=== PATIENT | female | born 1980 | race Caucasian/White ===

== ENCOUNTER 2021-05-27 13:46 | Inpatient (IN) | payer OTHER ==
[~2021-05-27] VITALS: Ht 154.9 cm; Wt 138.1 kg
[2021-05-27 14:48] LABS: BASOPHILS % 0.1 % (0.0-1.0); HEMOGLOBIN 13.4 g/dL (12.0-16.0); LYMPHOCYTES # (AUTO) 0.9 (1.0-3.2); LYMPHOCYTES % 11.2 % (18.0-39.1); MEAN CORPUSCULAR HEMOGLOBIN 29.3 pg (28-32); MEAN CORPUSCULAR HGB CONC 32.7 g/dL (31-35); MEAN CORPUSCULAR VOLUME 89.7 fL (81-99); MONOCYTES # (AUTO) 0.3 (0.2-0.8); NEUTROPHILS # (AUTO) 6.6 (2.1-6.9); NEUTROPHILS % 83.2 % (38.7-80.0); PLATELET COUNT 164 x10e3/uL (140-360); RED BLOOD COUNT 4.57 x10e6/uL (3.6-5.1)
[2021-05-27 14:59] LABS: INR 0.95; PROTHROMBIN TIME 13.3 seconds (11.9-14.5)
[2021-05-27 15:00] LABS: PARTIAL THROMBOPLASTIN TIME 28.5 seconds (23.8-35.5)
[2021-05-27 15:06] LABS: ALBUMIN 2.7 g/dL (3.5-5.0); ALBUMIN/GLOBULIN RATIO 0.5 (0.8-2.0); ANION GAP 18.9 mmol/L (8-16); CREATININE, SERUM 0.89 mg/dL (0.57-1.11); POTASSIUM 3.9 mmol/L (3.5-5.1)
[2021-05-27 15:12] LABS: CREATINE KINASE MB 0.8 ng/mL (0-5.0)
[2021-05-27] MEDS ORDERED: SODIUM CHLORIDE 0.9% 1000ML 1,000 ML IV STA (15:27)
[2021-05-27] MEDS ORDERED: ACETAMINOPHEN 325 MG TAB PO ONE (15:30)
[2021-05-27] MEDS ORDERED: CEFTRIAXONE 1 GM in SODIUM CHLORIDE 0.9% 50ML 50 ML IV ONE (16:00)
[2021-05-27] MEDS: DEXAMETHASONE SOD PHOS 10 MG/1 ML VIAL IV SCH (16:11)
[2021-05-27] MEDS ORDERED: LACTATED RINGER'S 500 ML INJ ONE (16:15)
[2021-05-27] MEDS ORDERED: JUNEL1 EAC1 PO (16:43)
[2021-05-27] MEDS ORDERED: REMDESIVIR 200MG 200 MG in SODIUM CHLORIDE 0.9% 100 ML 100 ML IV ONE (17:00)
[2021-05-27] MEDS ORDERED: ENOXAPARIN SOD INJ 40 MG/0.4 ML SYR SC SCH (21:00)
[2021-05-28] VITALS (18 sets, daily range): BP systolic 91–128; BP diastolic 61–96
[2021-05-28 02:16] LABS: CLARITY,URINE SL CLOUDY (CLEAR); COLOR,URINE AMBER (YELLOW); KETONES,URINE 2+ (NEGATIVE); LEUKOCYTE ESTERASE ,URINE NEGATIVE (NEGATIVE); NITRITE,URINE NEGATIVE (NEGATIVE); PROTEIN,URINE DIPSTICK 2+ (NEGATIVE); URINE UROBILINOGEN 0.2 mg/dL (0.2 - 1)
[2021-05-28 02:19] LABS: BACTERIA,URINE FEW /HPF; EPITHELIAL CELLS,URINE FEW /LPF; WBC,URINE (MAN) 0-5 /HPF (0-5)
[2021-05-28 02:20] LABS: AMORPHOUS SEDIMENT,URINE FEW (FEW)
[2021-05-28] MEDS: ACETAMINOPHEN 325 MG TAB PO PRN (03:15)
[2021-05-28 05:54] LABS: HEMATOCRIT 36.6 % (34.2-44.1); HEMOGLOBIN 11.8 g/dL (12.0-16.0); LYMPHOCYTES # (AUTO) 0.7 (1.0-3.2); LYMPHOCYTES % 9.2 % (18.0-39.1); MEAN CORPUSCULAR HEMOGLOBIN 29.4 pg (28-32); MEAN CORPUSCULAR HGB CONC 32.2 g/dL (31-35); MEAN CORPUSCULAR VOLUME 91.3 fL (81-99); MONOCYTES # (AUTO) 0.3 (0.2-0.8); MONOCYTES % 3.5 % (4.4-11.3); NEUTROPHILS # (AUTO) 6.8 (2.1-6.9); PLATELET COUNT 160 x10e3/uL (140-360); RED BLOOD COUNT 4.01 x10e6/uL (3.6-5.1); RED CELL DISTRIBUTION WIDTH 13.9 % (11.7-14.4)
[2021-05-28 06:29] LABS: ALBUMIN 2.2 g/dL (3.5-5.0); ALBUMIN/GLOBULIN RATIO 0.5 (0.8-2.0); ANION GAP 17.9 mmol/L (8-16); CALCIUM 8.5 mg/dL (8.4-10.2); CREATININE, SERUM 0.82 mg/dL (0.57-1.11); MAGNESIUM 2.3 MG/DL (1.3-2.1); PHOSPHORUS 2.1 MG/DL (2.3-4.7); POTASSIUM 3.9 mmol/L (3.5-5.1)
[2021-05-28] MEDS ORDERED: DEXTROSE 50% SYRINGE 50 ML IV PRN (07:00)
[2021-05-28 08:13] LABS: ABG PCO2 42 mmHg (35-45); ABG PH 7.42 (7.35-7.45); ABG PO2 47 mmHg (80-105)
[2021-05-28 08:14] LABS: ABG HCO3 27 mmol/L (22-26); ABG TCO2 28
[2021-05-28] MEDS: DEXAMETHASONE SOD PHOS 10 MG/1 ML VIAL IV SCH (08:14)
[2021-05-28] MEDS: FAMOTIDINE 20 MG/2 ML VIAL IV SCH (08:14)
[2021-05-28] MEDS: ENOXAPARIN SODIUM INJ 100 MG/ML SYR SC SCH ×2 (08:14→21:04)
[2021-05-28] MEDS: CEFTRIAXONE 1 GM in SODIUM CHLORIDE 0.9% 50ML 50 ML IV SCH (08:14)
[2021-05-28] MEDS: INSULIN LISPRO 100 UNIT/1 ML 3ML VIAL SQ SCH ×4 (08:17→21:10)
[2021-05-28] MEDS: ZINC SULFATE 220 MG CAP PO SCH (09:00)
[2021-05-28] MEDS: CHOLECALCIFEROL 400 UNIT TAB PO SCH (09:00)
[2021-05-28] MEDS: ASCORBIC ACID 500 MG TAB PO SCH ×2 (09:00→17:00)
[2021-05-28] MEDS ORDERED: FUROSEMIDE INJ 10 MG/ML 2 ML VIAL IV ONE ×2 (09:00→10:00)
[2021-05-28] MEDS ORDERED: FUROSEMIDE INJ 10 MG/ML 2 ML VIAL ONE (09:38)
[2021-05-28] MEDS: REMDESIVIR 100MG 100 MG in SODIUM CHLORIDE 0.9% 100 ML 100 ML IV SCH (13:04)
[2021-05-28] MEDS: DEXMEDETOMIDINE 200MCG/NS 50ML 50 ML IV SCH (18:29)
[2021-05-29] VITALS (25 sets, daily range): BP systolic 82–140; BP diastolic 51–98
[2021-05-29] MEDS: DEXMEDETOMIDINE 200MCG/NS 50ML 50 ML IV SCH ×3 (00:19→20:32)
[2021-05-29 04:50] LABS: BASOPHILS % 0.1 % (0.0-1.0); HEMATOCRIT 39.3 % (34.2-44.1); HEMOGLOBIN 12.4 g/dL (12.0-16.0); LYMPHOCYTES # (AUTO) 0.9 (1.0-3.2); LYMPHOCYTES % 8.9 % (18.0-39.1); MEAN CORPUSCULAR HEMOGLOBIN 29.1 pg (28-32); MEAN CORPUSCULAR HGB CONC 31.6 g/dL (31-35); MEAN CORPUSCULAR VOLUME 92.3 fL (81-99); MONOCYTES # (AUTO) 0.5 (0.2-0.8); MONOCYTES % 4.7 % (4.4-11.3); NEUTROPHILS # (AUTO) 8.4 (2.1-6.9); NEUTROPHILS % 84.6 % (38.7-80.0); PLATELET COUNT 176 x10e3/uL (140-360); RED BLOOD COUNT 4.26 x10e6/uL (3.6-5.1); RED CELL DISTRIBUTION WIDTH 13.8 % (11.7-14.4)
[2021-05-29 04:58] LABS: PROTHROMBIN TIME 13.8 seconds (11.9-14.5)
[2021-05-29 05:08] LABS: ALBUMIN 2.2 g/dL (3.5-5.0); ALBUMIN/GLOBULIN RATIO 0.5 (0.8-2.0); ANION GAP 18.2 mmol/L (8-16); CALCIUM 8.9 mg/dL (8.4-10.2); CREATININE, SERUM 1.04 mg/dL (0.57-1.11); POTASSIUM 4.2 mmol/L (3.5-5.1)
[2021-05-29] MEDS: ALBUMIN 25% 25GM 100ML 0.25 GM/ML BTL IV SCH ×3 (08:30→23:42)
[2021-05-29] MEDS: DEXAMETHASONE SOD PHOS 10 MG/1 ML VIAL IV SCH (08:30)
[2021-05-29] MEDS: ENOXAPARIN SODIUM INJ 100 MG/ML SYR SC SCH ×2 (08:30→20:32)
[2021-05-29] MEDS: CHOLECALCIFEROL 400 UNIT TAB PO SCH (08:32)
[2021-05-29] MEDS: ASCORBIC ACID 500 MG TAB PO SCH ×2 (08:32→17:29)
[2021-05-29] MEDS: CEFTRIAXONE 1 GM in SODIUM CHLORIDE 0.9% 50ML 50 ML IV SCH (08:32)
[2021-05-29] MEDS: ZINC SULFATE 220 MG CAP PO SCH (08:32)
[2021-05-29] MEDS: FAMOTIDINE 20 MG/2 ML VIAL IV SCH (08:32)
[2021-05-29] MEDS: INSULIN LISPRO 100 UNIT/1 ML 3ML VIAL SQ SCH ×4 (09:11→22:00)
[2021-05-29] MEDS ORDERED: TOCILIZUMAB 400 MG in SODIUM CHLORIDE 0.9% 80 ML IV ONE (10:00)
[2021-05-29] MEDS: REMDESIVIR 100MG 100 MG in SODIUM CHLORIDE 0.9% 100 ML 100 ML IV SCH (14:12)
[2021-05-29] MEDS ORDERED: DIPHENOXYLATE/ATROPINE TAB PO PRN (19:00)
[2021-05-29] MEDS: ACETAMINOPHEN 325 MG TAB PO PRN (20:33)
[2021-05-30] VITALS (25 sets, daily range): BP systolic 117–181; BP diastolic 71–99
[2021-05-30 06:12] LABS: BASOPHILS % 0.1 % (0.0-1.0); HEMATOCRIT 35.9 % (34.2-44.1); HEMOGLOBIN 11.1 g/dL (12.0-16.0); LYMPHOCYTES # (AUTO) 0.9 (1.0-3.2); MEAN CORPUSCULAR HEMOGLOBIN 29.1 pg (28-32); MEAN CORPUSCULAR HGB CONC 30.9 g/dL (31-35); MEAN CORPUSCULAR VOLUME 94.2 fL (81-99); MONOCYTES # (AUTO) 0.4 (0.2-0.8); MONOCYTES % 4.6 % (4.4-11.3); NEUTROPHILS # (AUTO) 6.7 (2.1-6.9); NEUTROPHILS % 82.3 % (38.7-80.0); PLATELET COUNT 152 x10e3/uL (140-360); RED BLOOD COUNT 3.81 x10e6/uL (3.6-5.1); RED CELL DISTRIBUTION WIDTH 13.7 % (11.7-14.4)
[2021-05-30 07:18] LABS: ALBUMIN 3.1 g/dL (3.5-5.0); ALBUMIN/GLOBULIN RATIO 0.9 (0.8-2.0); ANION GAP 17.3 mmol/L (8-16); CALCIUM 8.7 mg/dL (8.4-10.2); CREATININE, SERUM 0.86 mg/dL (0.57-1.11); POTASSIUM 4.3 mmol/L (3.5-5.1)
[2021-05-30] MEDS: CHOLECALCIFEROL 400 UNIT TAB PO SCH (08:23)
[2021-05-30] MEDS: ASCORBIC ACID 500 MG TAB PO SCH ×2 (08:23→17:00)
[2021-05-30] MEDS: ZINC SULFATE 220 MG CAP PO SCH (08:24)
[2021-05-30] MEDS: INSULIN LISPRO 100 UNIT/1 ML 3ML VIAL SQ SCH ×4 (08:27→21:00)
[2021-05-30] MEDS: DEXAMETHASONE SOD PHOS 10 MG/1 ML VIAL IV SCH (08:28)
[2021-05-30] MEDS: FAMOTIDINE 20 MG/2 ML VIAL IV SCH (08:28)
[2021-05-30] MEDS: ENOXAPARIN SODIUM INJ 100 MG/ML SYR SC SCH ×2 (08:28→21:00)
[2021-05-30] MEDS: CEFTRIAXONE 1 GM in SODIUM CHLORIDE 0.9% 50ML 50 ML IV SCH (08:28)
[2021-05-30 08:34] LABS: TOTAL PROTEIN 24HR, URINE 754.9 mg/24hr (50-100); TOTAL PROTEIN, URINE 71.9 mg/dL (1-14)
[2021-05-30] MEDS: REMDESIVIR 100MG 100 MG in SODIUM CHLORIDE 0.9% 100 ML 100 ML IV SCH (14:17)
[2021-05-30] MEDS: DEXMEDETOMIDINE 200MCG/NS 50ML 50 ML IV SCH (23:16)
[2021-05-31] VITALS (25 sets, daily range): BP systolic 142–183; BP diastolic 60–97
[2021-05-31 06:17] LABS: BASOPHILS % 0.2 % (0.0-1.0); HEMATOCRIT 40.5 % (34.2-44.1); HEMOGLOBIN 12.4 g/dL (12.0-16.0); LYMPHOCYTES # (AUTO) 1.3 (1.0-3.2); MEAN CORPUSCULAR HGB CONC 30.6 g/dL (31-35); MEAN CORPUSCULAR VOLUME 94.6 fL (81-99); MONOCYTES # (AUTO) 0.4 (0.2-0.8); MONOCYTES % 3.7 % (4.4-11.3); NEUTROPHILS # (AUTO) 8.2 (2.1-6.9); NEUTROPHILS % 81.6 % (38.7-80.0); PLATELET COUNT 200 x10e3/uL (140-360); RED BLOOD COUNT 4.28 x10e6/uL (3.6-5.1); RED CELL DISTRIBUTION WIDTH 13.5 % (11.7-14.4)
[2021-05-31 06:39] LABS: INR 1.01; PROTHROMBIN TIME 13.9 seconds (11.9-14.5)
[2021-05-31 06:40] LABS: PARTIAL THROMBOPLASTIN TIME 28.1 seconds (23.8-35.5)
[2021-05-31 06:46] LABS: ALBUMIN/GLOBULIN RATIO 0.8 (0.8-2.0); ANION GAP 14.4 mmol/L (8-16); CALCIUM 8.8 mg/dL (8.4-10.2); CREATININE, SERUM 0.78 mg/dL (0.57-1.11); POTASSIUM 4.4 mmol/L (3.5-5.1)
[2021-05-31] MEDS: INSULIN LISPRO 100 UNIT/1 ML 3ML VIAL SQ SCH ×4 (07:30→21:00)
[2021-05-31] MEDS: FAMOTIDINE 20 MG/2 ML VIAL IV SCH (08:21)
[2021-05-31] MEDS: ENOXAPARIN SODIUM INJ 100 MG/ML SYR SC SCH ×2 (08:21→21:30)
[2021-05-31] MEDS: DEXAMETHASONE SOD PHOS 10 MG/1 ML VIAL IV SCH (08:21)
[2021-05-31] MEDS: CEFTRIAXONE 1 GM in SODIUM CHLORIDE 0.9% 50ML 50 ML IV SCH (08:21)
[2021-05-31] MEDS: ZINC SULFATE 220 MG CAP PO SCH (08:22)
[2021-05-31] MEDS: CHOLECALCIFEROL 400 UNIT TAB PO SCH (08:22)
[2021-05-31] MEDS: ASCORBIC ACID 500 MG TAB PO SCH ×2 (08:22→17:00)
[2021-05-31] MEDS ORDERED: SODIUM CHLORIDE 0.45% 1,000 ML IV ONE (08:45)
[2021-05-31] MEDS: REMDESIVIR 100MG 100 MG in SODIUM CHLORIDE 0.9% 100 ML 100 ML IV SCH (14:22)
[2021-05-31] MEDS: DEXMEDETOMIDINE 200MCG/NS 50ML 50 ML IV SCH (22:05)
[2021-06-01] VITALS (27 sets, daily range): BP systolic 129–185; BP diastolic 47–111
[2021-06-01 06:03] LABS: BASOPHILS % 0.2 % (0.0-1.0); EOSINOPHILS % 0.2 % (0.0-6.0); HEMATOCRIT 40.8 % (34.2-44.1); HEMOGLOBIN 12.8 g/dL (12.0-16.0); LYMPHOCYTES # (AUTO) 1.4 (1.0-3.2); LYMPHOCYTES % 11.3 % (18.0-39.1); MEAN CORPUSCULAR HEMOGLOBIN 29.2 pg (28-32); MEAN CORPUSCULAR HGB CONC 31.4 g/dL (31-35); MEAN CORPUSCULAR VOLUME 93.2 fL (81-99); MONOCYTES # (AUTO) 0.4 (0.2-0.8); MONOCYTES % 2.9 % (4.4-11.3); NEUTROPHILS # (AUTO) 10.6 (2.1-6.9); NEUTROPHILS % 83.8 % (38.7-80.0); PLATELET COUNT 201 x10e3/uL (140-360); RED BLOOD COUNT 4.38 x10e6/uL (3.6-5.1); RED CELL DISTRIBUTION WIDTH 13.5 % (11.7-14.4)
[2021-06-01 06:34] LABS: ALBUMIN 2.9 g/dL (3.5-5.0); ALBUMIN/GLOBULIN RATIO 0.9 (0.8-2.0); ANION GAP 12.3 mmol/L (8-16); CALCIUM 8.4 mg/dL (8.4-10.2); CREATININE, SERUM 0.73 mg/dL (0.57-1.11); POTASSIUM 4.3 mmol/L (3.5-5.1)
[2021-06-01] MEDS: INSULIN LISPRO 100 UNIT/1 ML 3ML VIAL SQ SCH ×4 (07:30→21:00)
[2021-06-01] MEDS ORDERED: SODIUM CHLORIDE 0.45% 1,000 ML IV ONE (08:15)
[2021-06-01] MEDS: DEXAMETHASONE SOD PHOS 10 MG/1 ML VIAL IV SCH (09:01)
[2021-06-01] MEDS: FAMOTIDINE 20 MG/2 ML VIAL IV SCH (09:01)
[2021-06-01] MEDS: ENOXAPARIN SODIUM INJ 100 MG/ML SYR SC SCH ×2 (09:09→21:35)
[2021-06-01] MEDS ORDERED: HYDRALAZINE HCL 20 MG/ML VIAL IV PRN (09:30)
[2021-06-01] MEDS: CEFTRIAXONE 1 GM in SODIUM CHLORIDE 0.9% 50ML 50 ML IV SCH (09:49)
[2021-06-01] MEDS: ZINC SULFATE 220 MG CAP PO SCH (12:51)
[2021-06-01] MEDS: ASCORBIC ACID 500 MG TAB PO SCH ×3 (12:51→17:00)
[2021-06-01] MEDS: CHOLECALCIFEROL 400 UNIT TAB PO SCH (12:51)
[2021-06-01] MEDS ORDERED: HYDROCODONE/APAP 5MG-325MG TAB PO PRN (14:30)
[2021-06-02] VITALS (25 sets, daily range): BP systolic 108–148; BP diastolic 32–100
[2021-06-02 04:49] LABS: BASOPHILS % 0.2 % (0.0-1.0); EOSINOPHILS # (AUTO) 0.2 (0.0-0.4); EOSINOPHILS % 1.5 % (0.0-6.0); HEMATOCRIT 40.1 % (34.2-44.1); HEMOGLOBIN 12.8 g/dL (12.0-16.0); LYMPHOCYTES # (AUTO) 1.7 (1.0-3.2); LYMPHOCYTES % 16.1 % (18.0-39.1); MEAN CORPUSCULAR HEMOGLOBIN 29.2 pg (28-32); MEAN CORPUSCULAR HGB CONC 31.9 g/dL (31-35); MEAN CORPUSCULAR VOLUME 91.6 fL (81-99); MONOCYTES # (AUTO) 0.4 (0.2-0.8); MONOCYTES % 3.3 % (4.4-11.3); NEUTROPHILS # (AUTO) 8.3 (2.1-6.9); NEUTROPHILS % 77.1 % (38.7-80.0); PLATELET COUNT 200 x10e3/uL (140-360); RED BLOOD COUNT 4.38 x10e6/uL (3.6-5.1); RED CELL DISTRIBUTION WIDTH 13.6 % (11.7-14.4)
[2021-06-02 05:02] LABS: INR 1.07; PROTHROMBIN TIME 14.6 seconds (11.9-14.5)
[2021-06-02 05:03] LABS: PARTIAL THROMBOPLASTIN TIME 25.1 seconds (23.8-35.5)
[2021-06-02 05:10] LABS: ALBUMIN 2.9 g/dL (3.5-5.0); ANION GAP 12.5 mmol/L (8-16); CALCIUM 8.6 mg/dL (8.4-10.2); CREATININE, SERUM 0.71 mg/dL (0.57-1.11); POTASSIUM 4.5 mmol/L (3.5-5.1)
[2021-06-02] MEDS: DEXMEDETOMIDINE 200MCG/NS 50ML 50 ML IV SCH ×2 (07:00→22:00)
[2021-06-02] MEDS: INSULIN LISPRO 100 UNIT/1 ML 3ML VIAL SQ SCH ×3 (07:30→18:47)
[2021-06-02] MEDS: ASCORBIC ACID 500 MG TAB PO SCH ×2 (09:00→18:00)
[2021-06-02] MEDS: CEFTRIAXONE 1 GM in SODIUM CHLORIDE 0.9% 50ML 50 ML IV SCH (09:57)
[2021-06-02] MEDS: FAMOTIDINE 20 MG/2 ML VIAL IV SCH (09:57)
[2021-06-02] MEDS: DEXAMETHASONE SOD PHOS 10 MG/1 ML VIAL IV SCH (09:57)
[2021-06-02] MEDS: ENOXAPARIN SODIUM INJ 100 MG/ML SYR SC SCH ×2 (09:58→20:39)
[2021-06-02] MEDS: CHOLECALCIFEROL 400 UNIT TAB PO SCH (17:59)
[2021-06-02] MEDS: ZINC SULFATE 220 MG CAP PO SCH (17:59)
[2021-06-02] MEDS ORDERED: CENTRAL TPN FORMULA 1 BAG IV SCH (20:00)
[2021-06-03] VITALS (29 sets, daily range): BP systolic 83–124; BP diastolic 30–87
[2021-06-03] MEDS: INSULIN LISPRO 100 UNIT/1 ML 3ML VIAL SQ SCH ×5 (00:06→23:16)
[2021-06-03 04:50] LABS: BASOPHILS % 0.2 % (0.0-1.0); EOSINOPHILS # (AUTO) 0.2 (0.0-0.4); EOSINOPHILS % 1.3 % (0.0-6.0); HEMATOCRIT 40.6 % (34.2-44.1); HEMOGLOBIN 13.1 g/dL (12.0-16.0); LYMPHOCYTES # (AUTO) 1.4 (1.0-3.2); MEAN CORPUSCULAR HEMOGLOBIN 29.1 pg (28-32); MEAN CORPUSCULAR HGB CONC 32.3 g/dL (31-35); MEAN CORPUSCULAR VOLUME 90.2 fL (81-99); MONOCYTES # (AUTO) 0.4 (0.2-0.8); MONOCYTES % 2.8 % (4.4-11.3); NEUTROPHILS # (AUTO) 10.4 (2.1-6.9); NEUTROPHILS % 81.7 % (38.7-80.0); PLATELET COUNT 207 x10e3/uL (140-360); RED CELL DISTRIBUTION WIDTH 13.6 % (11.7-14.4)
[2021-06-03 05:13] LABS: ANION GAP 12.5 mmol/L (8-16); CALCIUM 8.3 mg/dL (8.4-10.2); CREATININE, SERUM 0.68 mg/dL (0.57-1.11); POTASSIUM 4.5 mmol/L (3.5-5.1)
[2021-06-03] MEDS: DEXMEDETOMIDINE 200MCG/NS 50ML 50 ML IV SCH ×3 (07:00→23:40)
[2021-06-03] MEDS: ENOXAPARIN SODIUM INJ 100 MG/ML SYR SC SCH ×2 (08:17→21:00)
[2021-06-03] MEDS: FAMOTIDINE 20 MG/2 ML VIAL IV SCH (08:17)
[2021-06-03] MEDS: ASCORBIC ACID 500 MG TAB PO SCH ×2 (08:22→15:30)
[2021-06-03] MEDS: CHOLECALCIFEROL 400 UNIT TAB PO SCH (08:22)
[2021-06-03] MEDS: ZINC SULFATE 220 MG CAP PO SCH (08:22)
[2021-06-03] MEDS: CENTRAL TPN FORMULA 1 BAG IV SCH (21:00)
[2021-06-04] VITALS (24 sets, daily range): BP systolic 87–129; BP diastolic 54–95
[2021-06-04] MEDS: DEXMEDETOMIDINE 200MCG/NS 50ML 50 ML IV SCH ×3 (05:26→15:04)
[2021-06-04 05:29] LABS: BASOPHILS % 0.2 % (0.0-1.0); EOSINOPHILS # (AUTO) 0.3 (0.0-0.4); EOSINOPHILS % 1.7 % (0.0-6.0); HEMATOCRIT 42.1 % (34.2-44.1); HEMOGLOBIN 13.5 g/dL (12.0-16.0); LYMPHOCYTES # (AUTO) 1.1 (1.0-3.2); LYMPHOCYTES % 6.6 % (18.0-39.1); MEAN CORPUSCULAR HEMOGLOBIN 29.5 pg (28-32); MEAN CORPUSCULAR HGB CONC 32.1 g/dL (31-35); MEAN CORPUSCULAR VOLUME 91.9 fL (81-99); MONOCYTES # (AUTO) 0.4 (0.2-0.8); MONOCYTES % 2.1 % (4.4-11.3); NEUTROPHILS # (AUTO) 14.7 (2.1-6.9); NEUTROPHILS % 86.9 % (38.7-80.0); PLATELET COUNT 186 x10e3/uL (140-360); RED BLOOD COUNT 4.58 x10e6/uL (3.6-5.1)
[2021-06-04 05:42] LABS: INR 0.99; PARTIAL THROMBOPLASTIN TIME 28.9 seconds (23.8-35.5); PROTHROMBIN TIME 13.7 seconds (11.9-14.5)
[2021-06-04 05:57] LABS: ALBUMIN 3.1 g/dL (3.5-5.0); ANION GAP 14.9 mmol/L (8-16); CALCIUM 8.5 mg/dL (8.4-10.2); CREATININE, SERUM 0.72 mg/dL (0.57-1.11); MAGNESIUM 2.5 MG/DL (1.3-2.1); PHOSPHORUS 3.7 MG/DL (2.3-4.7); POTASSIUM 4.9 mmol/L (3.5-5.1)
[2021-06-04] MEDS: INSULIN LISPRO 100 UNIT/1 ML 3ML VIAL SQ SCH ×3 (06:15→18:02)
[2021-06-04] MEDS: ZINC SULFATE 220 MG CAP PO SCH (07:31)
[2021-06-04] MEDS: CHOLECALCIFEROL 400 UNIT TAB PO SCH (07:31)
[2021-06-04] MEDS: ASCORBIC ACID 500 MG TAB PO SCH ×2 (07:31→14:46)
[2021-06-04] MEDS: FAMOTIDINE 20 MG/2 ML VIAL IV SCH (08:08)
[2021-06-04] MEDS: ENOXAPARIN SODIUM INJ 100 MG/ML SYR SC SCH ×2 (08:08→21:00)
[2021-06-04] MEDS ORDERED: Vancomycin IV 1 GM in SODIUM CHLORIDE 0.9% 250ML 250 ML IV ONE (08:30)
[2021-06-04] MEDS: MEROPENEM 1 GM in SODIUM CHLORIDE 0.9% 100 ML IV SCH ×2 (09:01→17:54)
[2021-06-04] MEDS ORDERED: ACETAMINOPHEN 325 MG SUPP PR PRN (15:15)
[2021-06-04] MEDS ORDERED: FENTANYL 2000MCG/NS 250 250 ML IV SCH (16:45)
[2021-06-04] MEDS: ROCURONIUM BROMIDE 1,250 MG in SODIUM CHLORIDE 0.9% 250ML 125 ML IV SCH (16:45)
[2021-06-04] MEDS ORDERED: SODIUM CHLORIDE 0.9% 1000ML 1,000 ML ONE (16:57)
[2021-06-04] MEDS: DEXMEDETOMIDINE 200MCG/NS 50ML 50 ML IV PRN (21:00)
[2021-06-04] MEDS: ACETAMINOPHEN 1000 MG/100 ML IV PRN (21:00)
[2021-06-04] MEDS: CENTRAL TPN FORMULA 1 BAG IV SCH (21:00)
[2021-06-04] MEDS ORDERED: SODIUM CHLORIDE 0.9% 250ML 250 ML ONE (22:12)
[2021-06-05] VITALS (22 sets, daily range): BP systolic 77–169; BP diastolic 40–106
[2021-06-05] MEDS: DEXMEDETOMIDINE 200MCG/NS 50ML 50 ML IV PRN (02:00)
[2021-06-05] MEDS: MEROPENEM 1 GM in SODIUM CHLORIDE 0.9% 100 ML IV SCH ×3 (02:00→17:55)
[2021-06-05] MEDS: FENTANYL 2000MCG/NS 250 250 ML IV PRN ×3 (04:45→18:55)
[2021-06-05] MEDS: MIDAZOLAM HCL 5MG/ML 10ML VIAL 100 ML IV PRN ×4 (04:45→18:55)
[2021-06-05 04:49] LABS: ABG HCO3 21 mmol/L (22-26); ABG PCO2 66 mmHg (35-45); ABG PH 7.11 (7.35-7.45); ABG PO2 36 mmHg (80-105); ABG TCO2 23
[2021-06-05] MEDS ORDERED: SODIUM BICARBONATE 8.4% INJ 50 ML SYR IV STA ×2 (05:15→06:30)
[2021-06-05] MEDS ORDERED: SODIUM BICARBONATE 8.4% SYRING 50 ML ONE ×2 (05:15)
[2021-06-05] MEDS: ROCURONIUM BROMIDE 1,250 MG in SODIUM CHLORIDE 0.9% 250ML 125 ML IV SCH (05:15)
[2021-06-05] MEDS: ACETAMINOPHEN 1000 MG/100 ML IV PRN (05:25)
[2021-06-05] MEDS ORDERED: ALBUMIN 25% 25GM 100ML 100 ML ONE (06:25)
[2021-06-05] MEDS ORDERED: ALBUMIN 25% 25GM 100ML 0.25 GM/ML BTL IV ONE (06:30)
[2021-06-05 06:42] LABS: BASOPHILS # (AUTO) 0.1 (0.0-0.1); BASOPHILS % 0.4 % (0.0-1.0); EOSINOPHILS # (AUTO) 0.2 (0.0-0.4); EOSINOPHILS % 0.8 % (0.0-6.0); HEMATOCRIT 40.4 % (34.2-44.1); HEMOGLOBIN 12.9 g/dL (12.0-16.0); LYMPHOCYTES # (AUTO) 0.8 (1.0-3.2); LYMPHOCYTES % 2.9 % (18.0-39.1); MEAN CORPUSCULAR HEMOGLOBIN 29.7 pg (28-32); MEAN CORPUSCULAR HGB CONC 31.9 g/dL (31-35); MEAN CORPUSCULAR VOLUME 92.9 fL (81-99); MONOCYTES # (AUTO) 0.7 (0.2-0.8); MONOCYTES % 2.5 % (4.4-11.3); NEUTROPHILS # (AUTO) 24.2 (2.1-6.9); NEUTROPHILS % 89.2 % (38.7-80.0); PLATELET COUNT 173 x10e3/uL (140-360); RED BLOOD COUNT 4.35 x10e6/uL (3.6-5.1); RED CELL DISTRIBUTION WIDTH 14.6 % (11.7-14.4)
[2021-06-05] MEDS: INSULIN LISPRO 100 UNIT/1 ML 3ML VIAL SQ SCH ×4 (06:50→18:57)
[2021-06-05] MEDS ORDERED: NOREPINEPHRINE 8 MG/D5W 250 ML 250 ML ONE (06:54)
[2021-06-05] MEDS ORDERED: SODIUM CHLORIDE 0.9% 1000ML 2,000 ML ONE (06:56)
[2021-06-05] MEDS ORDERED: NOREPINEPHRINE INJ 4MG/4ML 8 MG in DEXTROSE 5% 250ML 250 ML IV PRN (07:00)
[2021-06-05] MEDS ORDERED: SODIUM CHLORIDE 0.9% 1000ML 1,000 ML IV ONE (07:00)
[2021-06-05 07:02] LABS: ALBUMIN 3.2 g/dL (3.5-5.0); ALBUMIN/GLOBULIN RATIO 1.1 (0.8-2.0); ANION GAP 16.3 mmol/L (8-16); CALCIUM 8.2 mg/dL (8.4-10.2); CREATININE, SERUM 0.86 mg/dL (0.57-1.11); POTASSIUM 4.3 mmol/L (3.5-5.1)
[2021-06-05] MEDS: NOREPINEPHRINE 8 MG/D5W 250 ML 250 ML IV SCH (07:10)
[2021-06-05 07:26] LABS: ABG PCO2 44 mmHg (35-45); ABG PH 7.36 (7.35-7.45); ABG PO2 58 mmHg (80-105)
[2021-06-05 07:27] LABS: ABG HCO3 25 mmol/L (22-26); ABG TCO2 26
[2021-06-05 08:00] LABS: BAND NEUTROPHILS % (MANUAL) 3 %; EOSINOPHILS % (MANUAL) 2 % (0-7); LYMPHOCYTES % (MANUAL) 1 % (19-48); NEUTROPHILS % (MANUAL) 94 % (40-74); NUCLEATED RED BLOOD CELLS 1
[2021-06-05 08:06] LABS: MICROCYTOSIS SLIGHT; PLATELET ESTIMATE ADEQUATE; PLATELET MORPHOLOGY COMMENT NORMAL; POLYCHROMASIA FEW; RBC MORPHOLOGY COMMENT NORMAL
[2021-06-05] MEDS ORDERED: ROCURONIUM BROMIDE 1,250 MG in SODIUM CHLORIDE 0.9% 250ML 125 ML IV PRN (08:15)
[2021-06-05] MEDS: ASCORBIC ACID 500 MG TAB PO SCH ×3 (09:00→17:00)
[2021-06-05] MEDS: CHOLECALCIFEROL 400 UNIT TAB PO SCH ×2 (09:00→09:50)
[2021-06-05] MEDS: ZINC SULFATE 220 MG CAP PO SCH ×2 (09:00→09:50)
[2021-06-05] MEDS: FAMOTIDINE 20 MG/2 ML VIAL IV SCH (09:50)
[2021-06-05] MEDS ORDERED: FENTANYL 2000MCG/NS 250 250 ML ONE (10:39)
[2021-06-05] MEDS ORDERED: MIDAZOLAM HCL 5MG/ML 10ML VIAL 100 ML IV ONE (10:39)
[2021-06-05] MEDS: LINEZOLID 600 MG/D5W 300ML 300 ML IV SCH (15:06)
[2021-06-05] MEDS: METHYLPREDNISOLONE SOD SUCC 40 MG/ML VIAL 1ML IV SCH (15:07)
[2021-06-05] MEDS: CENTRAL TPN FORMULA 1 BAG IV SCH (19:58)
[2021-06-06] VITALS (16 sets, daily range): BP systolic 91–131; BP diastolic 54–76
[2021-06-06] MEDS: INSULIN LISPRO 100 UNIT/1 ML 3ML VIAL SQ SCH ×4 (00:09→17:38)
[2021-06-06] MEDS: FENTANYL 2000MCG/NS 250 250 ML IV PRN ×4 (00:54→20:50)
[2021-06-06] MEDS: MIDAZOLAM HCL 5MG/ML 10ML VIAL 100 ML IV PRN ×4 (00:55→20:51)
[2021-06-06] MEDS: LINEZOLID 600 MG/D5W 300ML 300 ML IV SCH ×2 (02:21→14:13)
[2021-06-06] MEDS: MEROPENEM 1 GM in SODIUM CHLORIDE 0.9% 100 ML IV SCH ×3 (02:21→17:39)
[2021-06-06] MEDS: METHYLPREDNISOLONE SOD SUCC 40 MG/ML VIAL 1ML IV SCH ×2 (04:16→14:13)
[2021-06-06 06:06] LABS: BASOPHILS # (AUTO) 0.1 (0.0-0.1); BASOPHILS % 0.3 % (0.0-1.0); EOSINOPHILS % 0.1 % (0.0-6.0); HEMATOCRIT 34.1 % (34.2-44.1); HEMOGLOBIN 10.8 g/dL (12.0-16.0); LYMPHOCYTES # (AUTO) 0.8 (1.0-3.2); LYMPHOCYTES % 4.6 % (18.0-39.1); MEAN CORPUSCULAR HEMOGLOBIN 29.6 pg (28-32); MEAN CORPUSCULAR HGB CONC 31.7 g/dL (31-35); MEAN CORPUSCULAR VOLUME 93.4 fL (81-99); MONOCYTES # (AUTO) 0.3 (0.2-0.8); MONOCYTES % 1.6 % (4.4-11.3); NEUTROPHILS # (AUTO) 16.5 (2.1-6.9); NEUTROPHILS % 89.8 % (38.7-80.0); PLATELET COUNT 145 x10e3/uL (140-360); RED BLOOD COUNT 3.65 x10e6/uL (3.6-5.1); RED CELL DISTRIBUTION WIDTH 14.8 % (11.7-14.4)
[2021-06-06 06:35] LABS: ALBUMIN 2.6 g/dL (3.5-5.0); ANION GAP 12.3 mmol/L (8-16); CREATININE, SERUM 0.63 mg/dL (0.57-1.11); POTASSIUM 4.3 mmol/L (3.5-5.1)
[2021-06-06 06:39] LABS: BAND NEUTROPHILS % (MANUAL) 1 %; EOSINOPHILS % (MANUAL) 2 % (0-7); LYMPHOCYTES % (MANUAL) 5 % (19-48); MONOCYTES % (MANUAL) 7 % (3.4-9.0); NEUTROPHILS % (MANUAL) 85 % (40-74); PLATELET ESTIMATE SLIGHTLY DECREASED; POLYCHROMASIA MODE; RBC MORPHOLOGY COMMENT NORMAL
[2021-06-06] MEDS: NOREPINEPHRINE 8 MG/D5W 250 ML 250 ML IV SCH (07:00)
[2021-06-06 08:02] LABS: ABG HCO3 22 mmol/L (22-26); ABG PCO2 30 mmHg (35-45); ABG PH 7.48 (7.35-7.45); ABG PO2 52 mmHg (80-105); ABG TCO2 23
[2021-06-06] MEDS: ENOXAPARIN SODIUM INJ 100 MG/ML SYR SC SCH ×2 (08:17→20:40)
[2021-06-06] MEDS: FAMOTIDINE 20 MG/2 ML VIAL IV SCH (08:17)
[2021-06-06] MEDS: CHOLECALCIFEROL 400 UNIT TAB PO SCH (09:00)
[2021-06-06] MEDS: ZINC SULFATE 220 MG CAP PO SCH (09:00)
[2021-06-06] MEDS: ASCORBIC ACID 500 MG TAB PO SCH ×2 (09:00→17:00)
[2021-06-06] MEDS ORDERED: SODIUM CHLORIDE 0.9% 1000ML 1,000 ML ONE (11:13)
[2021-06-06] MEDS ORDERED: FUROSEMIDE INJ 10 MG/ML 4 ML VIAL IV ONE (12:30)
[2021-06-06] MEDS: CENTRAL TPN FORMULA 1 BAG IV SCH (20:36)
[2021-06-07] VITALS (14 sets, daily range): BP systolic 107–127; BP diastolic 61–80
[2021-06-07 00:34] LABS: CLARITY,URINE CLOUDY (CLEAR); COLOR,URINE AMBER (YELLOW); KETONES,URINE NEGATIVE (NEGATIVE); LEUKOCYTE ESTERASE ,URINE NEGATIVE (NEGATIVE); NITRITE,URINE NEGATIVE (NEGATIVE); PROTEIN,URINE DIPSTICK 1+ (NEGATIVE); URINE UROBILINOGEN 0.2 mg/dL (0.2 - 1)
[2021-06-07 00:35] LABS: AMORPHOUS SEDIMENT,URINE MANY (FEW); BACTERIA,URINE MANY /HPF; EPITHELIAL CELLS,URINE MANY /LPF; RBC,URINE 21-50 /HPF (0-5)
[2021-06-07] MEDS: INSULIN LISPRO 100 UNIT/1 ML 3ML VIAL SQ SCH ×4 (00:59→18:30)
[2021-06-07] MEDS: MEROPENEM 1 GM in SODIUM CHLORIDE 0.9% 100 ML IV SCH ×3 (02:41→17:35)
[2021-06-07] MEDS: LINEZOLID 600 MG/D5W 300ML 300 ML IV SCH ×2 (02:41→14:43)
[2021-06-07] MEDS: METHYLPREDNISOLONE SOD SUCC 40 MG/ML VIAL 1ML IV SCH ×2 (02:41→14:43)
[2021-06-07] MEDS: FENTANYL 2000MCG/NS 250 250 ML IV PRN ×3 (02:44→18:31)
[2021-06-07] MEDS: MIDAZOLAM HCL 5MG/ML 10ML VIAL 100 ML IV PRN ×5 (02:45→23:58)
[2021-06-07 05:07] LABS: BASOPHILS % 0.2 % (0.0-1.0); EOSINOPHILS % 0.1 % (0.0-6.0); HEMATOCRIT 33.8 % (34.2-44.1); HEMOGLOBIN 10.7 g/dL (12.0-16.0); LYMPHOCYTES % 5.1 % (18.0-39.1); MEAN CORPUSCULAR HEMOGLOBIN 29.6 pg (28-32); MEAN CORPUSCULAR HGB CONC 31.7 g/dL (31-35); MEAN CORPUSCULAR VOLUME 93.4 fL (81-99); MONOCYTES # (AUTO) 0.6 (0.2-0.8); NEUTROPHILS # (AUTO) 17.2 (2.1-6.9); NEUTROPHILS % 86.5 % (38.7-80.0); PLATELET COUNT 134 x10e3/uL (140-360); RED BLOOD COUNT 3.62 x10e6/uL (3.6-5.1); RED CELL DISTRIBUTION WIDTH 14.6 % (11.7-14.4)
[2021-06-07 05:28] LABS: ALBUMIN 2.5 g/dL (3.5-5.0); ALBUMIN/GLOBULIN RATIO 0.8 (0.8-2.0); ANION GAP 13.5 mmol/L (8-16); CALCIUM 8.3 mg/dL (8.4-10.2); CREATININE, SERUM 0.74 mg/dL (0.57-1.11); POTASSIUM 4.5 mmol/L (3.5-5.1)
[2021-06-07 08:38] LABS: ABG PH 7.34 (7.35-7.45)
[2021-06-07 08:39] LABS: ABG HCO3 25 mmol/L (22-26); ABG PCO2 47 mmHg (35-45); ABG PO2 57 mmHg (80-105); ABG TCO2 26
[2021-06-07] MEDS: ENOXAPARIN SODIUM INJ 100 MG/ML SYR SC SCH ×2 (09:03→20:54)
[2021-06-07] MEDS: FAMOTIDINE 20 MG/2 ML VIAL IV SCH (09:03)
[2021-06-07] MEDS: ASCORBIC ACID 500 MG TAB PO SCH ×2 (09:21→17:35)
[2021-06-07] MEDS: ZINC SULFATE 220 MG CAP PO SCH (09:21)
[2021-06-07] MEDS: CHOLECALCIFEROL 400 UNIT TAB PO SCH (09:21)
[2021-06-07] MEDS: FUROSEMIDE INJ 10 MG/ML 4 ML VIAL IV SCH ×2 (11:51→20:54)
[2021-06-07] MEDS: ALBUMIN 25% 25GM 100ML 0.25 GM/ML BTL IV SCH ×2 (11:51→17:36)
[2021-06-08] VITALS (28 sets, daily range): BP systolic 116–157; BP diastolic 60–89
[2021-06-08] MEDS: INSULIN LISPRO 100 UNIT/1 ML 3ML VIAL SQ SCH ×4 (01:10→17:13)
[2021-06-08] MEDS: FENTANYL 2000MCG/NS 250 250 ML IV PRN ×4 (01:37→22:15)
[2021-06-08] MEDS: MEROPENEM 1 GM in SODIUM CHLORIDE 0.9% 100 ML IV SCH ×3 (02:13→17:05)
[2021-06-08] MEDS: LINEZOLID 600 MG/D5W 300ML 300 ML IV SCH ×2 (02:13→14:15)
[2021-06-08 04:48] LABS: BASOPHILS # (AUTO) 0.1 (0.0-0.1); BASOPHILS % 0.3 % (0.0-1.0); EOSINOPHILS % 0.1 % (0.0-6.0); HEMATOCRIT 29.8 % (34.2-44.1); HEMOGLOBIN 9.3 g/dL (12.0-16.0); LYMPHOCYTES # (AUTO) 1.5 (1.0-3.2); LYMPHOCYTES % 9.1 % (18.0-39.1); MEAN CORPUSCULAR HEMOGLOBIN 29.4 pg (28-32); MEAN CORPUSCULAR HGB CONC 31.2 g/dL (31-35); MEAN CORPUSCULAR VOLUME 94.3 fL (81-99); MONOCYTES # (AUTO) 0.9 (0.2-0.8); MONOCYTES % 5.3 % (4.4-11.3); NEUTROPHILS # (AUTO) 12.7 (2.1-6.9); PLATELET COUNT 142 x10e3/uL (140-360); RED BLOOD COUNT 3.16 x10e6/uL (3.6-5.1); RED CELL DISTRIBUTION WIDTH 14.8 % (11.7-14.4)
[2021-06-08] MEDS ORDERED: ALBUMIN 25% 25GM 100ML 100 ML ONE (04:55)
[2021-06-08] MEDS: METHYLPREDNISOLONE SOD SUCC 40 MG/ML VIAL 1ML IV SCH ×2 (04:56→14:17)
[2021-06-08] MEDS: MIDAZOLAM HCL 5MG/ML 10ML VIAL 100 ML IV PRN ×4 (04:56→19:50)
[2021-06-08] MEDS: ALBUMIN 25% 25GM 100ML 0.25 GM/ML BTL IV SCH (04:56)
[2021-06-08 05:08] LABS: ALBUMIN 3.3 g/dL (3.5-5.0); ALBUMIN/GLOBULIN RATIO 1.5 (0.8-2.0); ANION GAP 15.2 mmol/L (8-16); CALCIUM 8.6 mg/dL (8.4-10.2); CREATININE, SERUM 0.76 mg/dL (0.57-1.11); POTASSIUM 4.2 mmol/L (3.5-5.1)
[2021-06-08] MEDS: ENOXAPARIN SODIUM INJ 100 MG/ML SYR SC SCH ×2 (08:03→21:30)
[2021-06-08] MEDS: CHOLECALCIFEROL 400 UNIT TAB PO SCH (08:04)
[2021-06-08] MEDS: FUROSEMIDE INJ 10 MG/ML 4 ML VIAL IV SCH (08:04)
[2021-06-08] MEDS: ZINC SULFATE 220 MG CAP PO SCH (08:04)
[2021-06-08] MEDS: ASCORBIC ACID 500 MG TAB PO SCH ×2 (08:04→16:33)
[2021-06-08] MEDS: FAMOTIDINE 20 MG/2 ML VIAL IV SCH (08:04)
[2021-06-08 08:28] LABS: ABG HCO3 26 mmol/L (22-26); ABG PCO2 39 mmHg (35-45); ABG PH 7.43 (7.35-7.45); ABG PO2 57 mmHg (80-105); ABG TCO2 28
[2021-06-08 16:15] LABS: ABG HCO3 27 mmol/L (22-26); ABG PCO2 42 mmHg (35-45); ABG PH 7.41 (7.35-7.45); ABG PO2 60 mmHg (80-105); ABG TCO2 29
[2021-06-09] VITALS (29 sets, daily range): BP systolic 94–165; BP diastolic 49–105
[2021-06-09] MEDS: ROCURONIUM BROMIDE 1,250 MG in SODIUM CHLORIDE 0.9% 250ML 125 ML IV PRN ×2
[2021-06-09] MEDS: INSULIN LISPRO 100 UNIT/1 ML 3ML VIAL SQ SCH ×4 (00:45→17:08)
[2021-06-09] MEDS: MEROPENEM 1 GM in SODIUM CHLORIDE 0.9% 100 ML IV SCH ×2 (01:45→09:15)
[2021-06-09] MEDS: MIDAZOLAM HCL 5MG/ML 10ML VIAL 100 ML IV PRN ×5 (01:45→22:20)
[2021-06-09] MEDS: LINEZOLID 600 MG/D5W 300ML 300 ML IV SCH ×2 (01:45→13:19)
[2021-06-09] MEDS: METHYLPREDNISOLONE SOD SUCC 40 MG/ML VIAL 1ML IV SCH (04:00)
[2021-06-09] MEDS ORDERED: HEPARIN SOD/SOD CHLORIDE 1,000 ML ONE (05:06)
[2021-06-09] MEDS: FENTANYL 2000MCG/NS 250 250 ML IV PRN ×3 (05:15→18:59)
[2021-06-09 05:39] LABS: BASOPHILS % 0.3 % (0.0-1.0); EOSINOPHILS % 0.1 % (0.0-6.0); HEMATOCRIT 32.3 % (34.2-44.1); HEMOGLOBIN 9.9 g/dL (12.0-16.0); LYMPHOCYTES # (AUTO) 1.5 (1.0-3.2); LYMPHOCYTES % 10.2 % (18.0-39.1); MEAN CORPUSCULAR HEMOGLOBIN 29.3 pg (28-32); MEAN CORPUSCULAR HGB CONC 30.7 g/dL (31-35); MEAN CORPUSCULAR VOLUME 95.6 fL (81-99); MONOCYTES % 6.8 % (4.4-11.3); NEUTROPHILS # (AUTO) 11.4 (2.1-6.9); NEUTROPHILS % 76.3 % (38.7-80.0); PLATELET COUNT 122 x10e3/uL (140-360); RED BLOOD COUNT 3.38 x10e6/uL (3.6-5.1); RED CELL DISTRIBUTION WIDTH 15.3 % (11.7-14.4)
[2021-06-09 06:08] LABS: ALBUMIN 3.3 g/dL (3.5-5.0); ALBUMIN/GLOBULIN RATIO 1.4 (0.8-2.0); ANION GAP 12.4 mmol/L (8-16); CALCIUM 8.1 mg/dL (8.4-10.2); CREATININE, SERUM 0.69 mg/dL (0.57-1.11); POTASSIUM 4.4 mmol/L (3.5-5.1)
[2021-06-09 06:29] LABS: LYMPHOCYTES % (MANUAL) 4 % (19-48); METAMYELOCYTES % (MANUAL) 1 % (0-0); MONOCYTES % (MANUAL) 6 % (3.4-9.0); NEUTROPHILS % (MANUAL) 89 % (40-74)
[2021-06-09 06:31] LABS: HYPOCHROMASIA SLIGHT; MICROCYTOSIS SLIGHT; PLATELET ESTIMATE ADEQUATE; PLATELET MORPHOLOGY COMMENT NORMAL; POLYCHROMASIA FEW; RBC MORPHOLOGY COMMENT NORMAL
[2021-06-09] MEDS: ENOXAPARIN SODIUM INJ 100 MG/ML SYR SC SCH ×2 (08:04→20:50)
[2021-06-09] MEDS: ZINC SULFATE 220 MG CAP PO SCH (08:05)
[2021-06-09] MEDS: FAMOTIDINE 20 MG/2 ML VIAL IV SCH (08:05)
[2021-06-09] MEDS: ASCORBIC ACID 500 MG TAB PO SCH ×2 (08:05→16:00)
[2021-06-09] MEDS: CHOLECALCIFEROL 400 UNIT TAB PO SCH (08:05)
[2021-06-09 08:48] LABS: ABG HCO3 30 mmol/L (22-26); ABG PCO2 50 mmHg (35-45); ABG PH 7.38 (7.35-7.45); ABG PO2 73 mmHg (80-105); ABG TCO2 31
[2021-06-09] MEDS ORDERED: ALTEPLASE RECOMBINANT 2 MG/2 ML VIAL IV PRN (12:15)
[2021-06-09] MEDS: FUROSEMIDE INJ 10 MG/ML 4 ML VIAL IV SCH ×2 (14:26→20:50)
[2021-06-10] VITALS (23 sets, daily range): BP systolic 106–152; BP diastolic 59–91
[2021-06-10] MEDS: INSULIN LISPRO 100 UNIT/1 ML 3ML VIAL SQ SCH ×4 (00:27→18:14)
[2021-06-10] MEDS: FENTANYL 2000MCG/NS 250 250 ML IV PRN ×3 (02:06→15:13)
[2021-06-10] MEDS: MIDAZOLAM HCL 5MG/ML 10ML VIAL 100 ML IV PRN ×3 (03:50→13:18)
[2021-06-10 05:53] LABS: BASOPHILS # (AUTO) 0.1 (0.0-0.1); BASOPHILS % 0.4 % (0.0-1.0); EOSINOPHILS # (AUTO) 0.2 (0.0-0.4); HEMATOCRIT 34.1 % (34.2-44.1); HEMOGLOBIN 10.7 g/dL (12.0-16.0); LYMPHOCYTES # (AUTO) 2.6 (1.0-3.2); LYMPHOCYTES % 14.5 % (18.0-39.1); MEAN CORPUSCULAR HEMOGLOBIN 29.9 pg (28-32); MEAN CORPUSCULAR HGB CONC 31.4 g/dL (31-35); MEAN CORPUSCULAR VOLUME 95.3 fL (81-99); MONOCYTES # (AUTO) 0.9 (0.2-0.8); NEUTROPHILS # (AUTO) 12.8 (2.1-6.9); NEUTROPHILS % 72.5 % (38.7-80.0); PLATELET COUNT 124 x10e3/uL (140-360); RED BLOOD COUNT 3.58 x10e6/uL (3.6-5.1); RED CELL DISTRIBUTION WIDTH 15.1 % (11.7-14.4)
[2021-06-10 06:14] LABS: ALBUMIN 3.1 g/dL (3.5-5.0); ALBUMIN/GLOBULIN RATIO 1.2 (0.8-2.0); ANION GAP 11.8 mmol/L (8-16); CALCIUM 8.3 mg/dL (8.4-10.2); CREATININE, SERUM 0.62 mg/dL (0.57-1.11); POTASSIUM 3.8 mmol/L (3.5-5.1)
[2021-06-10] MEDS: ROCURONIUM BROMIDE 1,250 MG in SODIUM CHLORIDE 0.9% 250ML 125 ML IV PRN (06:50)
[2021-06-10 06:52] LABS: BAND NEUTROPHILS % (MANUAL) 3 %; LYMPHOCYTES % (MANUAL) 14 % (19-48); NEUTROPHILS % (MANUAL) 80 % (40-74)
[2021-06-10 06:54] LABS: POLYCHROMASIA FEW
[2021-06-10 06:55] LABS: PLATELET ESTIMATE ADEQUATE; PLATELET MORPHOLOGY COMMENT NORMAL; RBC MORPHOLOGY COMMENT NORMAL; SMUDGE CELLS FEW
[2021-06-10 08:48] LABS: ABG HCO3 33 mmol/L (22-26); ABG PCO2 51 mmHg (35-45); ABG PH 7.41 (7.35-7.45); ABG PO2 59 mmHg (80-105); ABG TCO2 34
[2021-06-10] MEDS: FUROSEMIDE INJ 10 MG/ML 4 ML VIAL IV SCH (09:10)
[2021-06-10] MEDS: ASCORBIC ACID 500 MG TAB PO SCH ×2 (09:10→17:00)
[2021-06-10] MEDS: ZINC SULFATE 220 MG CAP PO SCH (09:10)
[2021-06-10] MEDS: FAMOTIDINE 20 MG/2 ML VIAL IV SCH (09:10)
[2021-06-10] MEDS: CHOLECALCIFEROL 400 UNIT TAB PO SCH (09:10)
[2021-06-10] MEDS: ENOXAPARIN SODIUM INJ 100 MG/ML SYR SC SCH ×2 (09:10→20:00)
[2021-06-11] VITALS (22 sets, daily range): BP systolic 116–146; BP diastolic 61–83
[2021-06-11 04:56] LABS: BASOPHILS # (AUTO) 0.1 (0.0-0.1); BASOPHILS % 0.4 % (0.0-1.0); EOSINOPHILS # (AUTO) 0.5 (0.0-0.4); EOSINOPHILS % 2.9 % (0.0-6.0); HEMATOCRIT 33.8 % (34.2-44.1); HEMOGLOBIN 10.2 g/dL (12.0-16.0); LYMPHOCYTES # (AUTO) 1.6 (1.0-3.2); LYMPHOCYTES % 10.1 % (18.0-39.1); MEAN CORPUSCULAR HEMOGLOBIN 29.6 pg (28-32); MEAN CORPUSCULAR HGB CONC 30.2 g/dL (31-35); MONOCYTES # (AUTO) 0.4 (0.2-0.8); MONOCYTES % 2.4 % (4.4-11.3); NEUTROPHILS # (AUTO) 12.7 (2.1-6.9); NEUTROPHILS % 79.5 % (38.7-80.0); PLATELET COUNT 107 x10e3/uL (140-360); RED BLOOD COUNT 3.45 x10e6/uL (3.6-5.1)
[2021-06-11 05:22] LABS: ALBUMIN 2.7 g/dL (3.5-5.0); ANION GAP 12.1 mmol/L (8-16); CALCIUM 7.9 mg/dL (8.4-10.2); CREATININE, SERUM 0.5 mg/dL (0.57-1.11); POTASSIUM 4.1 mmol/L (3.5-5.1)
[2021-06-11] MEDS: INSULIN LISPRO 100 UNIT/1 ML 3ML VIAL SQ SCH ×4 (06:00→18:05)
[2021-06-11 08:18] LABS: ABG HCO3 35 mmol/L (22-26); ABG PCO2 60 mmHg (35-45); ABG PH 7.37 (7.35-7.45); ABG PO2 61 mmHg (80-105); ABG TCO2 37
[2021-06-11] MEDS: ZINC SULFATE 220 MG CAP PO SCH (08:39)
[2021-06-11] MEDS: CHOLECALCIFEROL 400 UNIT TAB PO SCH (08:39)
[2021-06-11] MEDS: FAMOTIDINE 20 MG/2 ML VIAL IV SCH (08:39)
[2021-06-11] MEDS: ASCORBIC ACID 500 MG TAB PO SCH ×2 (08:39→17:21)
[2021-06-11] MEDS: ENOXAPARIN SODIUM INJ 100 MG/ML SYR SC SCH ×2 (08:39→21:13)
[2021-06-11] MEDS ORDERED: ALBUMIN 25% 25GM 100ML 0.25 GM/ML BTL IV SCH (10:30)
[2021-06-11] MEDS ORDERED: ACETAZOLAMIDE SODIUM 500 MG/VIAL IV ONE (11:00)
[2021-06-11] MEDS: FUROSEMIDE INJ 10 MG/ML 4 ML VIAL IV SCH ×2 (11:02→21:13)
[2021-06-11] MEDS: ALBUMIN 25% 25GM 100ML 100 ML IV SCH ×2 (11:02→18:11)
[2021-06-11] MEDS: ROCURONIUM BROMIDE 1,250 MG in SODIUM CHLORIDE 0.9% 250ML 125 ML IV PRN (14:45)
[2021-06-11] MEDS: FENTANYL 2000MCG/NS 250 250 ML IV PRN (18:38)
[2021-06-11] MEDS: MIDAZOLAM HCL 5MG/ML 10ML VIAL 100 ML IV PRN (18:41)
[2021-06-12] VITALS (27 sets, daily range): BP systolic 122–145; BP diastolic 56–84
[2021-06-12] MEDS: FENTANYL 2000MCG/NS 250 250 ML IV PRN ×3 (01:47→15:16)
[2021-06-12] MEDS: MIDAZOLAM HCL 5MG/ML 10ML VIAL 100 ML IV PRN ×5 (01:48→21:50)
[2021-06-12] MEDS: ALBUMIN 25% 25GM 100ML 100 ML IV SCH (03:25)
[2021-06-12 05:00] LABS: BASOPHILS % 0.3 % (0.0-1.0); EOSINOPHILS # (AUTO) 0.5 (0.0-0.4); EOSINOPHILS % 3.1 % (0.0-6.0); HEMATOCRIT 30.1 % (34.2-44.1); HEMOGLOBIN 9.2 g/dL (12.0-16.0); LYMPHOCYTES # (AUTO) 1.1 (1.0-3.2); LYMPHOCYTES % 7.8 % (18.0-39.1); MEAN CORPUSCULAR HEMOGLOBIN 29.9 pg (28-32); MEAN CORPUSCULAR HGB CONC 30.6 g/dL (31-35); MEAN CORPUSCULAR VOLUME 97.7 fL (81-99); MONOCYTES # (AUTO) 0.3 (0.2-0.8); NEUTROPHILS # (AUTO) 11.9 (2.1-6.9); NEUTROPHILS % 83.4 % (38.7-80.0); PLATELET COUNT 123 x10e3/uL (140-360); RED BLOOD COUNT 3.08 x10e6/uL (3.6-5.1); RED CELL DISTRIBUTION WIDTH 16.3 % (11.7-14.4)
[2021-06-12 05:26] LABS: ALBUMIN 3.6 g/dL (3.5-5.0); ALBUMIN/GLOBULIN RATIO 1.2 (0.8-2.0); ANION GAP 14.4 mmol/L (8-16); CALCIUM 9.1 mg/dL (8.4-10.2); CREATININE, SERUM 0.59 mg/dL (0.57-1.11); POTASSIUM 4.4 mmol/L (3.5-5.1)
[2021-06-12] MEDS: INSULIN LISPRO 100 UNIT/1 ML 3ML VIAL SQ SCH ×4 (05:34→17:14)
[2021-06-12] MEDS: FAMOTIDINE 20 MG/2 ML VIAL IV SCH (08:16)
[2021-06-12] MEDS: ASCORBIC ACID 500 MG TAB PO SCH ×2 (08:16→16:32)
[2021-06-12] MEDS: ENOXAPARIN SODIUM INJ 100 MG/ML SYR SC SCH ×2 (08:16→21:10)
[2021-06-12] MEDS: FUROSEMIDE INJ 10 MG/ML 4 ML VIAL IV SCH (08:16)
[2021-06-12] MEDS: CHOLECALCIFEROL 400 UNIT TAB PO SCH (08:17)
[2021-06-12] MEDS: ZINC SULFATE 220 MG CAP PO SCH (08:17)
[2021-06-12 08:50] LABS: ABG HCO3 34 mmol/L (22-26); ABG PCO2 60 mmHg (35-45); ABG PH 7.36 (7.35-7.45); ABG PO2 63 mmHg (80-105); ABG TCO2 36
[2021-06-12] MEDS ORDERED: FUROSEMIDE INJ 100 MG in SODIUM CHLORIDE 0.9% 100 ML 90 ML IV SCH (12:45)
[2021-06-12] MEDS: ROCURONIUM BROMIDE 1,250 MG in SODIUM CHLORIDE 0.9% 250ML 125 ML IV PRN (20:40)
[2021-06-13] VITALS (15 sets, daily range): BP systolic 55–144; BP diastolic 43–77
[2021-06-13] MEDS: INSULIN LISPRO 100 UNIT/1 ML 3ML VIAL SQ SCH ×3 (00:16→11:37)
[2021-06-13] MEDS ORDERED: LEVALBUTEROL HCL SOLN NEBU 0.63 MG/3 ML NEB INH STA (05:06)
[2021-06-13] MEDS ORDERED: NOREPINEPHRINE 8 MG/D5W 250 ML 250 ML ONE (05:13)
[2021-06-13] MEDS ORDERED: LEVALBUTEROL HCL SOLN NEBU 0.63 MG/3 ML NEB INH PRN (05:15)
[2021-06-13 05:42] LABS: BASOPHILS # (AUTO) 0.1 (0.0-0.1); BASOPHILS % 0.3 % (0.0-1.0); EOSINOPHILS # (AUTO) 0.3 (0.0-0.4); EOSINOPHILS % 1.3 % (0.0-6.0); HEMATOCRIT 35.3 % (34.2-44.1); HEMOGLOBIN 10.2 g/dL (12.0-16.0); LYMPHOCYTES # (AUTO) 1.4 (1.0-3.2); LYMPHOCYTES % 6.5 % (18.0-39.1); MEAN CORPUSCULAR HEMOGLOBIN 29.7 pg (28-32); MEAN CORPUSCULAR HGB CONC 28.9 g/dL (31-35); MEAN CORPUSCULAR VOLUME 102.6 fL (81-99); MONOCYTES # (AUTO) 0.7 (0.2-0.8); MONOCYTES % 3.3 % (4.4-11.3); NEUTROPHILS # (AUTO) 17.8 (2.1-6.9); NEUTROPHILS % 84.8 % (38.7-80.0); PLATELET COUNT 101 x10e3/uL (140-360); RED BLOOD COUNT 3.44 x10e6/uL (3.6-5.1); RED CELL DISTRIBUTION WIDTH 16.9 % (11.7-14.4)
[2021-06-13] MEDS: FENTANYL 2000MCG/NS 250 250 ML IV PRN (05:59)
[2021-06-13] MEDS ORDERED: CEFEPIME 1 GM in SODIUM CHLORIDE 0.9% 50ML 50 ML IV SCH ×4 (06:00)
[2021-06-13 06:05] LABS: ALBUMIN/GLOBULIN RATIO 0.9 (0.8-2.0); CALCIUM 9.5 mg/dL (8.4-10.2); CREATININE, SERUM 0.8 mg/dL (0.57-1.11)
[2021-06-13 06:16] LABS: ANION GAP 20.4 mmol/L (8-16); POTASSIUM 5.4 mmol/L (3.5-5.1)
[2021-06-13] MEDS ORDERED: ALBUMIN 25% 25GM 100ML 100 ML ONE (07:04)
[2021-06-13] MEDS ORDERED: SODIUM CHLORIDE 0.9% 50ML 50 ML ONE (07:08)
[2021-06-13] MEDS ORDERED: VASOPRESSIN INJ 20 UNIT/ML VIAL ONE (07:08)
[2021-06-13] MEDS: MIDAZOLAM HCL 5MG/ML 10ML VIAL 100 ML IV PRN (07:47)
[2021-06-13] MEDS: ENOXAPARIN SODIUM INJ 100 MG/ML SYR SC SCH (07:48)
[2021-06-13] MEDS: CHOLECALCIFEROL 400 UNIT TAB PO SCH (08:01)
[2021-06-13] MEDS: FAMOTIDINE 20 MG/2 ML VIAL IV SCH (08:01)
[2021-06-13] MEDS: ZINC SULFATE 220 MG CAP PO SCH (08:01)
[2021-06-13] MEDS: ASCORBIC ACID 500 MG TAB PO SCH (08:01)
[2021-06-13 08:39] LABS: ABG HCO3 23 mmol/L (22-26); ABG PCO2 53 mmHg (35-45); ABG PH 7.24 (7.35-7.45); ABG PO2 64 mmHg (80-105); ABG TCO2 24
[2021-06-13] MEDS ORDERED: PHENYLEPHRINE 10MG/ML VIAL 40 MG in DEXTROSE 5% 250ML 246 ML IV SCH (09:30)
[2021-06-13] MEDS ORDERED: NOREPINEPHRINE 8 MG/D5W 250 ML 250 ML IV SCH (10:15)
[2021-06-13] MEDS: ROCURONIUM BROMIDE 1,250 MG in SODIUM CHLORIDE 0.9% 250ML 125 ML IV PRN (12:20)
[2021-06-13] MEDS ORDERED: ENOXAPARIN SODIUM INJ 100 MG/ML SYR SC SCH (20:00)
== END 2021-06-13 16:35 | disposition expired | DRG 870 ==
LOC: ER 13:58 → ERHOLD 16:42 → ICU 23:50
PROVIDERS: ADMIT Family Medicine; ATTEND Family Medicine
PROC: 02HV33Z Insertion of Infusion Device into Superior Vena Cava, Percutaneous Approach (ICD-10-PCS; principal; 2021-05-26)
PROC: XW043E5 Introduction of Remdesivir Anti-infective into Central Vein, Percutaneous Approach, New Technology Group 5 (ICD-10-PCS; 2021-05-27)
PROC: 5A09557 Assistance with Respiratory Ventilation, Greater than 96 Consecutive Hours, Continuous Positive Airway Pressure (ICD-10-PCS; 2021-05-28)
PROC: 3E0436Z Introduction of Nutritional Substance into Central Vein, Percutaneous Approach (ICD-10-PCS; 2021-06-02)
PROC: 5A1955Z Respiratory Ventilation, Greater than 96 Consecutive Hours (ICD-10-PCS; 2021-06-05)
PROC: 0BH17EZ Insertion of Endotracheal Airway into Trachea, Via Natural or Artificial Opening (ICD-10-PCS; 2021-06-05)
PROC: 3E043XZ Introduction of Vasopressor into Central Vein, Percutaneous Approach (ICD-10-PCS; 2021-06-05)
PROC: 03HY32Z Insertion of Monitoring Device into Upper Artery, Percutaneous Approach (ICD-10-PCS; 2021-06-05)
DX: A41.89 Other specified sepsis (principal); U07.1 COVID-19; J12.82 Pneumonia due to coronavirus disease 2019; J96.01 Acute respiratory failure with hypoxia; J15.9 Unspecified bacterial pneumonia; N17.9 Acute kidney failure, unspecified; Z68.43 Body mass index [BMI] 50.0-59.9, adult; E87.0 Hyperosmolality and hypernatremia; E44.1 Mild protein-calorie malnutrition; E66.2 Morbid (severe) obesity with alveolar hypoventilation; I10 Essential (primary) hypertension; D64.9 Anemia, unspecified; E83.39 Other disorders of phosphorus metabolism; R73.9 Hyperglycemia, unspecified; E66.01 Morbid (severe) obesity due to excess calories; Z83.3 Family history of diabetes mellitus; Z82.49 Family history of ischemic heart disease and other diseases of the circulatory system; R31.29 Other microscopic hematuria; R53.81 Other malaise; Z66 Do not resuscitate; R57.1 Hypovolemic shock
CPT/HCPCS: 31500; 36415; 36569; 36600; 51700; 71045; 74018; 76604; 80053; 81001; 81050; 82550; 82553; 82805; 82948; 83036; 83735; 83880; 84100; 84156; 84484; 85025; 85379; 85610; 85730; 86140; 87040; 87070; 87086; 87205; 92950; 93005; 93306; 94002; 94003; 94660; 96365; 96366; 96372; 99251; 99285; J0456; J0692; J0696; J1100; J1650; J1940; J2020; J2185; J2370; J2920; J2997; J3370; J7030; J7050; J7121; P9047; U0002